=== PATIENT | female | born 1980 | race Caucasian/White ===

== ENCOUNTER 2016-12-05 09:54 | Emergency (ER) | payer OTHER ==
[~2016-12-05 09:54] MED LIST: FLEXERIL10 MG PO; ORUDIS75 M1 PO
== END 2016-12-05 10:48 | disposition home or self-care (01) ==
LOC: CED 09:54 → CFTX 09:54
DX: N64.4 Mastodynia (principal); K21.9 Gastro-esophageal reflux disease without esophagitis
CPT/HCPCS: 99282